=== PATIENT | male | born 1950 | race Caucasian/White ===

== ENCOUNTER 2018-04-06 09:28 | Day surgery (SDC) | payer BC, OTHER ==
[2018-04-06] MEDS ORDERED: LR 1,000 ML IV ONE (09:41)
[2018-04-06] MEDS ORDERED: fentaNYL 100 MCG/2 ML INJ ONE (10:47)
[2018-04-06] MEDS ORDERED: PROPOFOL/EMULSION 500 MG/50 ML BOTTLE IV ONE (10:47)
[2018-04-06] MEDS ORDERED: LIDOCAINE 2% 2 ML INJ ONE (10:47)
--- NOTE | 2018-04-06 11:06 | PDANEPAE ---
ANE History of Present Illness h/o polyps, screening f/u ANE Past Medical History - Cardiovascular History Hx Hypertension: Yes Hx Arrhythmias: No Hx Chest Pain: No Hx Coronary Artery / Peripheral Vascular Disease: No Hx CHF / Valvular Disease: No Hx Palpitations: No Cardiovascular History Comment: has been told has occasional 'extra beats' on EKG's - Pulmonary History Hx COPD: No Hx Asthma/Reactive Airway Disease: No Hx Recent Upper Respiratory Infection: No Hx Oxygen in Use at Home: No Hx Sleep Apnea: Yes Sleep Apnea Screening Result - Last Documented: Positive Pulmonary History Comment: GREGORY triggers only. seasonal allergies - Neurologic History Hx Cerebrovascular Accident: No Hx Seizures: No Hx Dementia: No - Endocrine History Hx Diabetes: Yes - Renal History Hx Renal Disorders: Yes Renal History Comment: enlarged prostate - Liver History Hx Hepatic Disorders: No - Neurological & Psychiatric Hx Hx Neurological and Psychiatric Disorders: Yes Neurological / Psychiatric History Comment: bipolar, ADD - Cancer History Hx Cancer: No - Congenital Disorder History Hx Congenital Disorders: No - GI History Hx Gastrointestinal Disorders: Yes Gastrointestinal History Comment: states has narrowing of one part of intestine and it tends to slow things down - Other Health History Other Health History: torn labrum in right shoulder. wears glasses. lower left leg rash/discoloration - Chronic Pain History Chronic Pain: Yes (L knee, R foot, R shoulder) - Surgical History Prior Surgeries: four TKA on left. right toe surgery. colonoscopies ANE Review of Systems Review of Systems: - Exercise capacity METS (RN): 4 METS ANE Patient History - Allergies Allergies/Adverse Reactions: Sulfa (Sulfonamide Antibiotics) Allergy (Verified 04/06/18 10:15) states made him feel worse when it was prescribed - Home Medications Home Medications: Abilify 03/28/18 [Last Taken Unknown] Adult One Daily Multivit Tab 03/28/18 [Last Taken Unknown] Aspirin 03/28/18 [Last Taken Unknown] Celebrex 03/28/18 [Last Taken Unknown] Divalproex Sodium 03/28/18 [Last Taken Unknown] Glipizide 03/28/18 [Last Taken Unknown] Lisinopril 03/28/18 [Last Taken Unknown] Metformin HCl 03/28/18 [Last Taken Unknown] Methylphenidate 03/28/18 [Last Taken Unknown] Pioglitazone HCl 03/28/18 [Last Taken Unknown] Terazosin HCl 03/28/18 [Last Taken Unknown] Vitamin B-12 03/28/18 [Last Taken Unknown] Vitamin D3 03/28/18 [Last Taken Unknown] l-Lysine 03/28/18 [Last Taken Unknown] traMADol 03/28/18 [Last Taken Unknown] traZODONE 100MG (*) 03/28/18 [Last Taken Unknown] - NPO status NPO Since - Liquids (Date): 04/06/18 NPO Since - Liquids (Time): 06:00 NPO Since - Solids (Date): 04/04/18 NPO Since - Solids (Time): 17:00 - Smoking Hx Smoking Status: Former smoker - Family Anes Hx Family Hx Anesthesia Complications: none ANE Labs/Vital Signs - Vital Signs Blood Pressure: 117/75 Heart Rate: 89 Respiratory Rate: 16 O2 Sat (%): 94 Height: 180.34 cm Weight: 104.326 kg ANE Physical Exam - Airway Neck exam: FROM Mallampati Score: Class 1 Mouth exam: normal dental/mouth exam - Pulmonary Pulmonary: no respiratory distress - Cardiovascular Cardiovascular: regular rate and rhythym - ASA Status ASA Status: III ANE Anesthesia Plan Anesthesia Plan: GA with mask
--- NOTE | 2018-04-06 11:18 | PDGENHP ---
History & Physical Chief Complaint: positive fit test History of Present Illness: positive it test. colon few years ago not sure what they found Pertinent Past, Social, Family History: no tobacco - quit 1991. alcohol quit 1991. FHx - brother polyps, father polyps. DM, HTN psych issues Relevant Physical Exam: A+Ox3. CTA. S1S2. +BS, soft nt Cardiorespiratory Assessment: class 3
[2018-04-06] MEDS ORDERED: NALOXONE HCL 0.4 MG/ML INJ IVP PRN (11:41)
[2018-04-06] MEDS ORDERED: ONDANSETRON 4 MG/2 ML VIAL IVP PRN (11:41)
[2018-04-06] MEDS ORDERED: MEPERIDINE 25 MG/0.5 ML AMP IVP PRN (11:41)
[2018-04-06] MEDS ORDERED: DEXAMETHASONE 4 MG/ML VIAL IVP PRN (11:41)
[2018-04-06] MEDS ORDERED: fentaNYL 100 MCG/2 ML INJ IVP PRN (11:41)
[2018-04-06] MEDS ORDERED: LR 500 ML IV PRN (11:41)
--- NOTE | 2018-04-06 11:57 | GIREPORT ---
[facility] Surgical Services - Endoscopy Department Patient Name: Robb Huntley Procedure Date: 04/06/2018 11:15 AM Patient Type: Outpatient Attending MD/ ER Physician: Bishop Peterson Procedure: Colonoscopy Indications: Positive fecal immunochemical test Providers: Roe Thorne MD Referring MD: Carleen Robles NP Medicines: Total IV Anesthesia (TIVA) = IV general w/o airway Complications: No immediate complications. Estimated blood loss: Minimal. Description of Procedure: After obtaining informed consent, the scope was passed under direct vis ion. Throughout the procedure, the patient's blood pressure, pulse, and oxyg en saturations were monitored continuously. The Colonoscope with irrigatio n channel was introduced through the anus and advanced to the cecum, identified by the appendiceal orifice, ileocecal valve and palpation. T he colonoscopy was performed without difficulty. The patient tolerated the procedure well. The quality of the bowel preparation was good. Findings: The digital rectal exam was normal. A 5 mm polyp was found in the distal transverse colon. The polyp was sessile. The polyp was removed with a cold snare. Resection and retriev al were complete. Estimated blood loss was minimal. A 2 mm polyp was found in the distal transverse colon. The polyp was sessile. The polyp was removed with a cold biopsy forceps. Resection an d retrieval were complete. Estimated blood loss was minimal. A 4 mm polyp was found in the descending colon. The polyp was sessile. The polyp was removed with a piecemeal technique using a cold biopsy forcep s. Resection and retrieval were complete. Estimated blood loss was minimal . The exam was otherwise without abnormality. Estimated Blood Loss: Estimated blood loss was minimal. Post Op Diagnosis: - One 5 mm polyp in the distal transverse colon, removed with a cold sn are. Resected and retrieved. - One 2 mm polyp in the distal transverse colon, removed with a cold bi opsy forceps. Resected and retrieved. - One 4 mm polyp in the descending colon, removed piecemeal using a col d biopsy forceps. Resected and retrieved. - The examination was otherwise normal. Recommendation: - Await pathology results. - My office will call with the pathology result with 5-7 days. If you h ave not heard from my office by 12-14, do not assume the pathology is miguel l, please call [phone] to get the pathology results. - Repeat colonoscopy in 5 years for surveillance based on pathology res ults. If all three are adenomatous then the interval is 3 years. - High fiber diet. - Patient has a contact number available for emergencies. The signs and symptoms of potential delayed complications were discussed with the pat ient. Return to normal activities tomorrow. Written discharge instructions we re provided to the patient. - Continue present medications. - Discharge patient to home (ambulatory). - Return to primary care physician as previously scheduled. - Thank you for allowing me to help in your patient's care. Do not hesi leblanc to call with any questions. Attending Participation: I personally performed the entire procedure. Mati Au M.D Roe Thorne MD 04/06/2018 11:57:34 AM This report has been signed electronicallyMathew MD Mati Number of Addenda: 0 Note Initiated On: 04/06/2018 11:15 AM Total Procedure Duration Time 0 hours 21 minutes 32 seconds [email or web address]
[2018-04-06 12:33] VITALS: BP 123/61
--- NOTE | 2018-04-06 16:46 | POSTANESTH ---
Post Anesthetic Evaluation Cardiovascular Status: Normal, Stable Respiratory Status: Normal, Stable Level of Consciousness/Mental Status: Can Participate in Eval Pain Control: Adequate, Prn Tx Ordered Nausea/Vomiting Control: Adequate, Prn Tx Ordered Complications Possibly Related to Anesthesia: None Noted (Seen prior to dc home from PACU, doing well)
== END 2018-04-06 13:05 | disposition home or self-care (01) ==
LOC: FSGY 09:28
PROVIDERS: ATTEND Internal Medicine Gastroenterology
PROC: 0DBE8ZX Excision of Large Intestine, Via Natural or Artificial Opening Endoscopic, Diagnostic (ICD-10-PCS; principal; 2018-04-06 11:15)
DX: D12.3 Benign neoplasm of transverse colon (principal); D12.4 Benign neoplasm of descending colon; K63.5 Polyp of colon; E11.9 Type 2 diabetes mellitus without complications; I10 Essential (primary) hypertension
CPT/HCPCS: J2704; J3010